=== PATIENT | female | born 1955 | race Caucasian/White ===

== ENCOUNTER 2018-01-08 22:37 | Emergency (ER) | payer BC ==
[~2018-01-08] VITALS: Ht 167.6 cm; Wt 77.6 kg
--- OUTSIDE RECORDS SUMMARY | 2018-01-08 22:40 | XMS REPORT ---
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 Allergies, Adverse Reactions, Alerts This patient has no known allergies or adverse reactions. Medications This patient has no known medications. Results Test Description Test Time Test Comments Text Results Atomic Results Result Comments CT CERVICAL SPINE WO [place] [address] Patient Name: YUNI LOPEZ MR #: [id number] : 1955 Age/Sex: 61/F Req #: [id number] Adm Physician: Ordered by: CIERA SILVA MD Report #: [id number] Location: ER Room/Bed: Procedure: [id number] CT/CT CERVICAL SPINE WO Exam Date: 11/24/16 Exam Time: 1924 REPORT STATUS: Signed History: Fall, pain back of the head Comparison studies:None Technique: Axial images were obtained from the brain and cervical spine. Coronal and sagittal images reconstructed from the axial data. Intravenous contrast: None Findings: Head CT: Scalp/skull: Left parietal scalp hematoma. No fractures, blastic or lytic lesions. Brain sulci: Appropriate for age. Ventricles: Normal in size and configuration. No hydrocephalus. Extra-axial spaces: No masses. No fluid collections. Parenchyma: Few hypodensities in the supratentorial white matter are small vessel ischemic changes. No masses, hemorrhage, acute or chronic cortical vascular insults. Sellar/suprasellar region: No abnormalities. Craniocervical junction: Patent foramen magnum. No Chiari one malformation. Cervical spine CT: Fractures: None. Soft tissues: No gross abnormalities. Atlantoaxial articulation: Mild degenerative changes. No acute abnormality. Alignment: Normal lordosis. No scoliosis. Cervicomedullary junction: No abnormalities. Patent foramen magnum. Vertebrae: No infection or neoplasm. Degenerative changes: Mild facet and uncinate process hypertrophy at the mid cervical spine without significant canal or foraminal narrowing. Incidental findings: None. Impression: Head CT: 1. No acute abnormalities. 2. Mild supratentorial white matter small vessel ischemic changes. Cervical spine CT: 1. No abnormalities. 2. Cannot exclude ligament, spinal cord and or vascular abnormalities on the basis of this examination. Signed by: DR Corey Basurto M.D. on 11/24/2016 8:31 PM Dictated By: COREY VALDEZ MD 30 Transcribed By: BELLA on 11/24/162030 COPY TO: CIERA SILVA MD CT BRAIN WO [place] [address] Patient Name: YUNI LOPEZ MR #: [id number] : 1955 Age/Sex: 61/F Req #: [id number] Adm Physician: Ordered by: CIERA SILVA MD Report #: [id number] Location: ER Room/Bed: Procedure: CT/CT BRAIN WO Exam Date: 11/24/16 Exam Time: 1900 REPORT STATUS: Signed History: Fall, pain back of the head Comparison studies:None Technique: Axial images were obtained from the brain and cervical spine. Coronal and sagittal images reconstructed from the axial data. Intravenous contrast: None Findings: Head CT: Scalp/skull: Left parietal scalp hematoma. No fractures, blastic or lytic lesions. Brain sulci: Appropriate for age. Ventricles: Normal in size and configuration. No hydrocephalus. Extra-axial spaces: No masses. No fluid collections. Parenchyma: Few hypodensities in the supratentorial white matter are small vessel ischemic changes. No masses, hemorrhage, acute or chronic cortical vascular insults. Sellar/suprasellar region: No abnormalities. Craniocervical junction: Patent foramen magnum. No Chiari one malformation. Cervical spine CT: Fractures: None. Soft tissues: No gross abnormalities. Atlantoaxial articulation: Mild degenerative changes. No acute abnormality. Alignment: Normal lordosis. No scoliosis. Cervicomedullary junction: No abnormalities. Patent foramen magnum. Vertebrae: No infection or neoplasm. Degenerative changes: Mild facet and uncinate process hypertrophy at the mid cervical spine without significant canal or foraminal narrowing. Incidental findings: None. Impression: Head CT: 1. No acute abnormalities. 2. Mild supratentorial white matter small vessel ischemic changes. Cervical spine CT: 1. No abnormalities. 2. Cannot exclude ligament, spinal cord and or vascular abnormalities on the basis of this examination. Signed by: DR Corey Basurto M.D. on 11/24/2016 8:31 PM Dictated By: COREY VALDEZ MD 30 Transcribed By: BELLA on 11/24/162030 COPY TO: CIERA SILVA MD
[2018-01-08 23:37] LABS: CLARITY,URINE CLOUDY (CLEAR); COLOR,URINE YELLOW (YELLOW); KETONES,URINE 1+ (NEGATIVE); LEUKOCYTE ESTERASE ,URINE 2+ (NEGATIVE); NITRITE,URINE POSITIVE (NEGATIVE); PROTEIN,URINE DIPSTICK 1+ (NEGATIVE)
[2018-01-08 23:38] LABS: BILIRUBIN,URINE NEGATIVE (NEGATIVE); URINE UROBILINOGEN 0.2 mg/dL (0.2 - 1)
[2018-01-08 23:49] LABS: BACTERIA,URINE MANY /HPF; EPITHELIAL CELLS,URINE RARE /LPF; MUCUS,URINE MODERATE (RARE); RBC,URINE 21-50 /HPF (0-5); WBC,URINE (MAN) >50 /HPF (0-5)
[2018-01-09] MEDS ORDERED: CEFTRIAXONE SOD 1 GM VIAL IM ONE
--- NOTE | 2018-01-09 | Diagnostic Imaging Report ---
History: Dizziness, status post fall. Comparison studies: CT cervical spine from 11/24/2016. Technique: Axial images were obtained through the cervical region.. Coronal and sagittal images reconstructed from the axial data. Dose modulation, iterative reconstruction, and/or weight based adjustment of the mA/kV was utilized to reduce the radiation dose to as low as reasonably achievable. Intravenous contrast: None Findings: Fractures: None. Soft tissue injuries: None. Atlantoaxial articulation: Intact. Alignment: Loss of normal cervical lordosis is either positional or due to muscle spasm. No scoliosis. 1.2 mm grade 1 anterolisthesis at C4-C5, is likely degenerative. Cervicomedullary junction: No abnormalities. The foramen magnum is patent. Soft tissues: No abnormalities. Vertebrae: 3.5 mm well-corticated osseous fragment superior to the tip of the dens may represent sequelae of prior trauma. No fractures, infection or neoplasm. Degenerative changes: C3-C4: Mild right foraminal stenosis due to facet and uncovertebral arthrosis. C4-C5: Moderate right and mild left facet arthrosis. Mild bilateral foraminal stenosis due to facet and uncovertebral arthrosis. C5-C6: Mild to moderate degenerative disc disease. Mild left foraminal stenosis due to facet and uncovertebral arthrosis. . IMPRESSION: 1. No acute cervical spine fracture. Loss of normal cervical lordosis is either positional or due to muscle spasm. 2. Ligament, spinal cord and or vascular abnormalities cannot be excluded on the basis of this examination. 3. Cervical spondylosis as detailed above. Signed by: Dr. Scarlett Vallejo M.D. on 01/08/2018 11:57 PM
--- NOTE | 2018-01-09 00:04 | Diagnostic Imaging Report ---
EXAMINATION: Head CT without contrast. HISTORY:Status post fall. COMPARISON:CT head from 11/24/2016. TECHNIQUE: Multidetector axial images were obtained from the foramen magnum to the vertex without contrast. The images were reconstructed using brain and bone algorithms. Thin section brain images were reformatted into coronal and sagittal planes. Dose modulation, iterative reconstruction, and/or weight based adjustment of the mA/kV was utilized to reduce the radiation dose to as low as reasonably achievable. Intravenous contrast: None IMAGE QUALITY: Acceptable. FINDINGS: Skull/scalp: Mild right frontal temporal scalp soft tissue edema/hematoma. No soft tissue emphysema or radiopaque foreign body. No acute depressed or displaced calvarial fracture. Parenchyma: Nonspecific few, scattered supratentorial white matter hypodensity are likely related to small vessel ischemic changes. No acute hemorrhage, mass or acute major vascular territorial infarct. Arteries: No density suggestive of thrombosis. Dural sinuses: No abnormal density suggestive of thrombosis. Ventricles: No hydrocephalus or displacement. Extra-axial spaces: No abnormal density. Brain volume: Mild predominantly bilateral frontal cerebral volume loss. Craniocervical junction: No mass, Chiari malformation, or basilar invagination. Sella: No mass. Paranasal/mastoid sinuses: Imaged portions unremarkable. IMPRESSION: 1. Mild right frontal temporal scalp soft tissue edema/hematoma. No acute calvarial fracture. 2. No acute posttraumatic intracranial abnormality. 3. Mild supratentorial white matter microvascular ischemic changes. 4. Mild bifrontal cerebral volume loss. Signed by: Dr. Scarlett Vallejo M.D. on 01/09/2018 12:01 AM
== END 2018-01-09 01:03 | disposition home or self-care (01) ==
LOC: ER 22:37
DX: S00.81XA Abrasion of other part of head, initial encounter (principal); S60.512A Abrasion of left hand, initial encounter; S60.511A Abrasion of right hand, initial encounter; W01.0XXA Fall on same level from slipping, tripping and stumbling without subsequent striking against object, initial encounter; Y93.01 Activity, walking, marching and hiking; Y92.008 Other place in unspecified non-institutional (private) residence as the place of occurrence of the external cause; N30.01 Acute cystitis with hematuria; G35 Multiple sclerosis
CPT/HCPCS: 70450; 72125; 81001; 87086; 87186; 96372; 99283; J0696